=== PATIENT | female | born 2000 ===

== ENCOUNTER 2018-03-23 17:59 | Emergency (ER) | payer BC ==
[2018-03-23 18:07] VITALS: BMI 32.9
[2018-03-23 18:09] VITALS: RESP 16; TEMP 98.9; O2SAT 100
--- NOTE | 2018-03-23 18:40 | C.PDOC ---
Time Seen by Provider: 03/23/18 18:16 History Per: Patient Past Medical History Reviewed: Historical Data, Nursing Documentation, Vital Signs Vital Signs: Last Vital Signs Temp 98.9 F 03/23/18 18:08 Pulse 77 03/23/18 18:08 Resp 16 03/23/18 18:08 BP 114/75 03/23/18 18:08 Pulse Ox 100 03/23/18 18:08 - Medical History PMH: No Chronic Diseases Family History: States: Unknown Family Hx - Social History Hx Alcohol Use: No Hx Substance Use: No - Immunization History Hx Tetanus Toxoid Vaccination: No Hx Influenza Vaccination: No Hx Pneumococcal Vaccination: No Review Of Systems Gastrointestinal: Negative for: Nausea, Vomiting Musculoskeletal: Positive for: Arm Pain (right wrist pain) Physical Exam - Physical Exam Appears: Non-toxic Skin: Normal Color, Warm, Dry Head: Atraumatic, Normacephalic Eye(s): bilateral: Normal Inspection Extremity: Swelling (right wrist, redness), Other (deformity to right ulnar) Neurological/Psych: Oriented x3, Normal Motor, Normal Sensation ED Course And Treatment O2 Sat by Pulse Oximetry: 100 (RA) Pulse Ox Interpretation: Normal Medical Decision Making Medical Decision Making: Time: 1816 Initial Plan: --Motrin 600mg --Tylenol 975mg --Wrist, Right 3 Views --Reevaluation Scribe Attestation: Documented by Mell Arnold, acting as a scribe for Dianne Armando MD Provider Scribe Attestation: All medical record entries made by the Scribe were at my direction and personally dictated by me. I have reviewed the chart and agree that the record accurately reflects my personal performance of the history, physical exam, medical decision making, and the department course for this patient. I have also personally directed, reviewed, and agree with the discharge instructions and disposition. Disposition - Disposition
--- NOTE | 2018-03-23 18:41 | C.PDOC ---
History Of Present Illness 17 y/o female otherwise well came to the ED c/o pain and bruising to the right forearm. She states her grandfather accidentally closed a heavy door on her arm. pain is 6/10, throbbing, non radiating. Time Seen by Provider: 03/23/18 18:16 Chief Complaint (Nursing): Back Pain Onset/Duration Of Symptoms: Hrs, Sudden Onset Severity: Moderate Pain Scale Rating Of: 6 Past Medical History Vital Signs: Last Vital Signs Temp 98.9 F 03/23/18 18:08 Pulse 84 03/23/18 18:51 Resp 16 03/23/18 18:51 BP 118/81 03/23/18 18:51 Pulse Ox 100 03/28/18 09:55 - Medical History PMH: No Chronic Diseases Family History: States: No Known Family Hx - Social History Hx Alcohol Use: No Hx Substance Use: No - Immunization History Hx Tetanus Toxoid Vaccination: No Hx Influenza Vaccination: No Hx Pneumococcal Vaccination: No Review Of Systems Constitutional: Negative for: Fever, Chills Respiratory: Negative for: Cough, Shortness of Breath Gastrointestinal: Negative for: Nausea Musculoskeletal: Positive for: Arm Pain. Negative for: Neck Pain, Back Pain Skin: Negative for: Rash Physical Exam - Physical Exam Appears: Non-toxic, No Acute Distress Skin: Normal Color Head: Atraumatic Neck: Normal Extremity: Normal ROM, Tenderness, Other (bruising and swelling to right forearm ) ED Course And Treatment O2 Sat by Pulse Oximetry: 100 Medical Decision Making Medical Decision Making: X ray negative for fracture. Volar splint placed to right forearm Disposition Counseled Patient/Family Regarding: Studies Performed, Diagnosis, Need For Followup - Disposition Referrals: Fercho Ferguson MD [Staff Provider] - Disposition: HOME/ ROUTINE Disposition Time: 18:38 Condition: STABLE Additional Instructions: Follow up with Dr. Ferguson or your own Orthopedic in 1 week if symptoms persist. Motrin and Tylenol for pain. Call Dr. Armando for official radiology results tomorrow. Prescriptions: Ibuprofen [Motrin] 600 mg PO TID #15 tab Instructions: Contusion (DC) Forms: [facility] (Welsh), General Discharge Instructions - POA Present On Arrival: None - Clinical Impression Clinical Impression: Contusion of wrist, right
--- NOTE | 2018-03-23 18:46 | RAD ---
PROCEDURE: Right Wrist Radiographs. HISTORY: pain, deformity COMPARISON: None. FINDINGS: BONES: Normal. No fracture. JOINTS: Normal. No dislocation. SOFT TISSUES: Normal. OTHER FINDINGS: None. IMPRESSION: Normal right wrist radiographs.
--- NOTE | 2018-03-23 18:47 | C.PDOC ---
History Of Present Illness 17 year old female presents to the ED complaining of pain and swelling to the right wrist. States she was fixing the door and the door shut on her wrist. Rates the pain 8/10, it is constant and non-radiating. Denies nausea and vomiting. Time Seen by Provider: 03/23/18 18:16 History Per: Patient History/Exam Limitations: no limitations Onset/Duration Of Symptoms: Days Current Symptoms Are (Timing): Still Present Quality: "Pain" Pain Scale Rating Of: 8 Past Medical History Reviewed: Historical Data, Nursing Documentation, Vital Signs Vital Signs: Last Vital Signs Temp 98.9 F 03/23/18 18:08 Pulse 84 03/23/18 18:51 Resp 16 03/23/18 18:51 BP 118/81 03/23/18 18:51 Pulse Ox 100 03/23/18 18:52 - Medical History PMH: No Chronic Diseases Family History: States: Unknown Family Hx - Social History Hx Alcohol Use: No Hx Substance Use: No - Immunization History Hx Tetanus Toxoid Vaccination: No Hx Influenza Vaccination: No Hx Pneumococcal Vaccination: No Review Of Systems Gastrointestinal: Negative for: Nausea, Vomiting Musculoskeletal: Positive for: Arm Pain (right wrist) Physical Exam - Physical Exam Appears: Non-toxic, No Acute Distress Skin: Normal Color, Warm, Dry Head: Atraumatic, Normacephalic Eye(s): bilateral: Normal Inspection Extremity: Swelling (right wrist, redness), Other (deformity to right ulnar) Neurological/Psych: Oriented x3, Normal Motor, Normal Sensation ED Course And Treatment O2 Sat by Pulse Oximetry: 100 (RA) Pulse Ox Interpretation: Normal Medical Decision Making Medical Decision Making: Time: 1816 Initial Plan: --Motrin 600mg --Tylenol 975mg --Wrist, Right 3 Views --Reevaluation Scribe Attestation: Documented by Mell Arnold, acting as a scribe for Dianne M Armando, MD Provider Scribe Attestation: All medical record entries made by the Scribe were at my direction and personally dictated by me. I have reviewed the chart and agree that the record accurately reflects my personal performance of the history, physical exam, medical decision making, and the department course for this patient. I have also personally directed, reviewed, and agree with the discharge instructions and disposition. Disposition - Disposition Referrals: Fercho Ferguson MD [Staff Provider] - Disposition: HOME/ ROUTINE Disposition Time: 19:15 Condition: STABLE Additional Instructions: Follow up with Dr. Ferguson or your own Orthopedic in 1 week if symptoms persist. Motrin and Tylenol for pain. Call Dr. Armando for official radiology results tomorrow. Prescriptions: Ibuprofen [Motrin] 600 mg PO TID #15 tab Instructions: Contusion (DC) Forms: General Discharge Instructions, [facility] (Bengali) - Clinical Impression Clinical Impression: Contusion of wrist, right
[2018-03-23 19:09] VITALS: BP 118/81; PULSE 84
== END 2018-03-23 19:20 | disposition home or self-care (01) ==
LOC: C.ER 17:59
DX: S60.211A Contusion of right wrist, initial encounter (principal); W22.8XXA Striking against or struck by other objects, initial encounter